=== PATIENT | female | born 1985 | race African-American/Black ===

== ENCOUNTER 2016-09-11 08:17 | Emergency (ER) | payer OTHER ==
[2016-09-11] MEDS ORDERED: KETOROLAC 60 MG/2 ML VIAL IVP STA (11:16)
[2016-09-11] MEDS ORDERED: KETOROLAC 30 MG/ML VIAL ONE (11:58)
[2016-09-11] MEDS ORDERED: ONDANSETRON 4 MG/2 ML VIAL IVP STA (13:08)
[2016-09-11] MEDS ORDERED: HYDROmorphone 1 MG/ML SYRINGE IVP STA (13:08)
[2016-09-11] MEDS ORDERED: HYDROmorphone 1 MG/ML SYRINGE ONE (13:20)
[2016-09-11] MEDS ORDERED: ONDANSETRON 4 MG/2 ML VIAL ONE (13:20)
[2016-09-11] MEDS ORDERED: GADOBUTROL 7.5 MMOL/7.5 ML VIAL IVP ONE (15:25)
== END 2016-09-11 19:21 | disposition home or self-care (01) ==
DX: N83.202 Unspecified ovarian cyst, left side (principal)
CPT/HCPCS: 36415; 72197; 74176; 76830; 76856; 80053; 81001; 81025; 83690; 85025; 93976; 96374; 96375; 99283; 99284; A9585; J1170

== ENCOUNTER 2018-09-20 08:46 | Emergency (ER) | payer OTHER ==
[2018-09-20] MEDS ORDERED: oxyCODONE 5 MG TABLET PO STA (09:09)
--- NOTE | 2018-09-20 09:16 | ED Physician Documentation ---
History of Present Illness - Stated complaint Stated Complaint: LEFT SIDE PX - Chief complaint Chief Complaint: Abd Pain - Additonal information Additional information: hx from pt 32 f [place] pshx ovarian cyst LMP 09/07/18 to ED with severe LLQ pain since last night constant occ spikes to more severe no fever no NVD no dysuria or hematuria no vag bleed no vag dc she thinks this is another cyst Review of Systems Constitutional: denies: Fever, Chills Cardiac: denies: Chest pain / pressure Respiratory: denies: Dyspnea GI: reports: Abdominal Pain (LLQ) : denies: Dysuria, Hematuria, Discharge, Vaginal bleeding, Now EGA Musculoskeletal: denies: Back pain Endocrine: denies: Easy bruising / bleeding Immunocompromised: denies: Immunocompromised PD PAST MEDICAL HISTORY - Past Medical History [employer]: Endometriosis, Ovarian cysts - Present Medications Home Medications: Ambulatory Orders Medication Instructions Recorded Confirmed Hydrocodone/Acetaminophen 1 each PO Q6H PRN #10 tablet 09/20/18 [Hydrocodon-Acetaminophen 5-325] Ibuprofen [Motrin] 400 mg PO Q6H #30 tablet 09/20/18 Propranolol [Inderal] 0 mg PO BID 09/20/18 09/20/18 - Allergies Allergies/Adverse Reactions: Allergies Allergy/AdvReac Type Severity Reaction Status Date / Time No Known Drug Allergies Allergy Verified 09/20/18 08:53 - Social History Does the pt smoke?: No Smoking Status: Never smoker Does the pt drink ETOH?: Yes Does the pt have substance abuse?: No - Immunizations Immunizations are current?: Yes PD ED PE NORMAL - Vitals Vital signs reviewed: Yes - Cardiac Cardiac: RRR - Respiratory Respiratory: No respiratory distress - Abdomen Abdomen: Soft, Other (TTP LLQ s rebound or guarding) - Back Back: No CVA TTP - Derm Derm: Normal color - Neuro Neuro: Alert and oriented X 3 Results - Vitals Vitals: Vital Signs - 24 hr 09/20/18 08:51 Temperature 36.4 C L Heart Rate 83 Respiratory 14 Rate Blood Pressure 126/81 H O2 Saturation 100 Oxygen O2 Source Room air - Labs Labs: Laboratory Tests 09/20/18 10:00 Urine Color YELLOW Urine Clarity CLEAR Urine pH 6.5 Ur Specific [place] 1.010 Urine Protein NEGATIVE Urine Glucose (UA) NEGATIVE Urine Ketones NEGATIVE Urine Occult Blood SMALL H Urine Nitrite NEGATIVE Urine Bilirubin NEGATIVE Urine Urobilinogen 0.2 (NORMAL) Ur Leukocyte Esterase NEGATIVE Urine RBC 0-5 Urine WBC 0-3 Ur Squamous Epith Cells MOD Squamous H Urine Bacteria Rare Ur Microscopic Review INDICATED Urine Culture Comments NOT INDICATED Urine HCG, Qual NEGATIVE - Rads (name of study) pelvic sono Radiology: See rad report (2 large L ovarian cysts up to 3.5 cm no torsion, some internal debris, small simple right ovarian cyst) Departure - Departure Disposition: 01 Home, Self Care Clinical Impression: Ovarian cyst Qualifiers: Laterality: left Qualified Code(s): N83.202 - Unspecified ovarian cyst, left side Condition: Good Instructions: ED Cyst Ovarian Follow-Up: [facility] [Provider Group] Prescriptions: Hydrocodone/Acetaminophen [Hydrocodon-Acetaminophen 5-325] 1 each PO Q6H PRN #10 tablet PRN Reason: Severe Pain Ibuprofen [Motrin] 400 mg PO Q6H #30 tablet Comments: You are not You have cysts in both ovaries. The left ovary has two very large cysts - up to 3.7 cm. Thankfully there is still good blood flow to the ovary. There is some suggestion of bleeding within the large left cyst which may be causing the pain. It is Ok for you to go hoem with pain medications Please follow up with [employer] at [facility] tomorrow. Return to the ER if worse - large cysts can sometimes become so heavy they cause the ovary to twist and cut of its own blood supply and that requires emergent surgery
[2018-09-20 10:40] LABS: BILIRUBIN,URINE NEGATIVE (NEGATIVE); GLUCOSE, URINE (UA) NEGATIVE (NEGATIVE); KETONES,URINE (UA) NEGATIVE (NEGATIVE); LEUKOCYTE ESTERASE, URINE NEGATIVE (NEGATIVE); NITRITE,URINE NEGATIVE (NEGATIVE); OCCULT BLOOD,URINE SMALL (NEGATIVE); PH,URINE 6.5 PH (5.0-7.5); PROTEIN,URINE NEGATIVE (NEGATIVE); UROBILINOGEN,URINE 0.2 (NORMAL) E.U./dL (NORMAL)
[2018-09-20 10:41] LABS: CLARITY,URINE CLEAR (CLEAR); HCG UR QUAL NEGATIVE
[2018-09-20 10:48] LABS: BACTERIA,URINE Rare /HPF (None Seen); RBC,URINE 0-5 /HPF (0-5); SQUAMOUS EPITHELIAL CELL,UR MOD Squamous (<= Few)
--- NOTE | 2018-09-20 11:09 | Ultrasound Report ---
Reason: severe LLQ pain hx ovarian cysts concern torsion Procedure Date: 09/20/2018 Accession Number: [id number] / [id number] Procedure: US - Pelvic w/Transvag+Doppler Comp CPT Code: FULL RESULT: EXAM: PELVIC ULTRASOUND EXAM DATE: 09/20/2018 10:26 AM. CLINICAL HISTORY: Severe LLQ pain. History of ovarian cyst. COMPARISON: 09/11/2016. TECHNIQUE: Realtime transabdominal pelvic scan performed to identify the uterus and adnexa and as an overview of other pelvic structures, followed by transvaginal scan to provide greater detail of the uterus and adnexa, with static image documentation. FINDINGS: Uterus: 7.1 x 3.4 x 4.4 cm, volume 56 cc. Normal overall size and echotexture. Masses: None. Endometrium: 7.4 mm. Normal. Cervix: Unremarkable. Right Ovary: 3.9 x 2.2 x 2.7 cm, volume 12 cc. Simple cyst measuring 1.9 cm. A few follicles. No solid masses. Normal vascular flow in the ovarian tissue. Left Ovary: 5.6 x 3.5 x 4.9 cm, volume 50 cc. Two adjacent cysts; measuring 3.6 x 1.7 x 3.7 cm (complex with intraluminal debris) and measuring 2.8 x 2.4 x 3.9 (simple). No solid masses. Normal vascular flow in the ovarian tissue. Free Fluid: Mild free fluid. IMPRESSION: 1. No evidence for ovarian torsion. 2. Two left ovarian cysts, as described; the largest measures 3.7 cm in maximal dimension and contains intraluminal debris. Suggest follow-up to confirm resolution. 3. Simple right ovarian cyst measures 1.9 cm. RADIA
[2018-09-20 11:47] VITALS: BP 133/89
== END 2018-09-20 11:47 | disposition home or self-care (01) ==
LOC: ED 08:46
DX: N83.292 Other ovarian cyst, left side (principal); N83.291 Other ovarian cyst, right side
CPT/HCPCS: 76830; 76856; 81001; 81025; 87491; 87591; 93975; 99283; A9270; 81003; 87086

== ENCOUNTER 2018-11-25 16:38 | Emergency (ER) | payer OTHER ==
[2018-11-25 17:02] LABS: BASOPHILS % (AUTO) 0.4 %; HGB - HEMOGLOBIN 13.2 g/dL (12.0-16.0); LYMPHOCYTES # (AUTO) 0.5 10^3/uL (1.5-3.5); LYMPHOCYTES % (AUTO) 7.8 %; MEAN CORPUSCULAR HEMOGLOBIN 31.5 pg (27.0-31.0); MEAN CORPUSCULAR HGB CONC 34.5 g/dL (32.0-36.0); MEAN CORPUSCULAR VOLUME 91.4 fL (81.0-99.0); MEAN PLATELET VOLUME 8.2 fL (7.9-10.8); MONOCYTES # (AUTO) 0.9 10^3/uL (0.0-1.0); NEUTROPHILS # (AUTO) 5.1 10^3/uL (1.5-6.6); NEUTROPHILS % (AUTO) 77.8 %; PLT - PLATELET COUNT 244 10^3/uL (130-450); RED BLOOD COUNT 4.19 10^6/uL (4.20-5.40); RED CELL DISTRIBUTION WIDTH 12.6 % (12.0-15.0); WHITE BLOOD COUNT 6.5 x10^3/uL (4.8-10.8)
[2018-11-25] MEDS ORDERED: SODIUM CHLORIDE 0.9% 1,000 ML IV ONE (17:09)
[2018-11-25] MEDS ORDERED: METOCLOPRAMIDE 10 MG/2 ML VIAL IVP STA (17:09)
[2018-11-25] MEDS ORDERED: FAMOTIDINE 20 MG in SODIUM CHLORIDE 0.9% 50 ML IV STA (17:09)
[2018-11-25 17:17] LABS: ALBUMIN/GLOBULIN RATIO 1.1 (1.0-2.2); BILIRUBIN,TOTAL 1.2 mg/dL (0.2-1.0); CALCIUM 8.9 mg/dL (8.5-10.3); CREATININE 0.6 mg/dL (0.4-1.0); TOTAL PROTEIN 7.6 g/dL (6.7-8.2)
[2018-11-25 17:33] LABS: GLUCOSE, URINE (UA) NEGATIVE (NEGATIVE); KETONES,URINE (UA) 15 mg/dL (NEGATIVE); LEUKOCYTE ESTERASE, URINE NEGATIVE (NEGATIVE); NITRITE,URINE NEGATIVE (NEGATIVE); OCCULT BLOOD,URINE LARGE (NEGATIVE); PROTEIN,URINE TRACE mg/dL (NEGATIVE); UROBILINOGEN,URINE 1 (NORMAL) E.U./dL (NORMAL)
[2018-11-25 17:38] LABS: BILIRUBIN,URINE NEGATIVE (NEGATIVE); CLARITY,URINE CLEAR (CLEAR); ICTOTEST,URINE NEGATIVE
[2018-11-25 17:48] LABS: BACTERIA,URINE Moderate /HPF (None Seen); MUCUS,URINE Marked Strands; SQUAMOUS EPITHELIAL CELL,UR MANY Squamous (<= Few)
[2018-11-25 19:00] LABS: HCG UR QUAL NEGATIVE
[2018-11-25] MEDS ORDERED: ONDANSETRON 4 MG/2 ML VIAL IVP STA (19:01)
[2018-11-25] MEDS ORDERED: KETOROLAC 15 MG/ML VIAL IVP STA (19:01)
--- NOTE | 2018-11-25 19:27 | Ultrasound Report ---
Reason: epigastric pain Procedure Date: 11/25/2018 Accession Number: [id number] / [id number] Procedure: US - Abdomen Limited CPT Code: FULL RESULT: EXAM: ABDOMEN ULTRASOUND LIMITED, RUQ EXAM DATE: 11/25/2018 12:58 AM. CLINICAL HISTORY: Epigastric pain. COMPARISON: PEL NON OB W/TV DOP 09/20/2018 9:44 AM ABDOMEN/PELVIS W/O 09/11/2016 11:38 AM. TECHNIQUE: Real-time scanning was performed with static images obtained. FINDINGS: Liver: Normal in size and echotexture. 13.8 cm. Main portal vein flow: Hepatopetal. Gallbladder: Normal. No stones, wall thickening, or sonographic Brito's sign. Biliary System: CBD measures 3 mm. No intrahepatic or extrahepatic ductal dilatation. Other: The right kidney is unremarkable no hydronephrosis. IMPRESSION: Normal. No cholelithiasis. RADIA
--- NOTE | 2018-11-25 19:39 | ED Physician Documentation ---
History of Present Illness - Stated complaint Stated Complaint: NAUSEA - Chief complaint Chief Complaint: Abd Pain - Additonal information Additional information: 33-year-old female presents the emergency department for epigastric pain associ ated with nausea which is been ongoing for the past day. The patient denies any focal lower abdominal pain. The patient reports having no appetite and that food makes her symptoms worse. The patient denies any radiation of the symptoms. No relieving factors. No other associated symptoms PD PAST MEDICAL HISTORY - Past Medical History [employer]: Endometriosis, Ovarian cysts - Present Medications Home Medications: Ambulatory Orders Medication Instructions Recorded Confirmed Ibuprofen [Motrin] 400 mg PO Q6H #30 tablet 09/20/18 11/25/18 Famotidine [Pepcid] 20 mg PO BID PRN #60 tablet 11/25/18 Ondansetron HCl [Zofran] 4 mg PO Q6HR PRN #30 tablet 11/25/18 - Allergies Allergies/Adverse Reactions: Allergies Allergy/AdvReac Type Severity Reaction Status Date / Time No Known Drug Allergies Allergy Verified 11/25/18 16:44 - Social History Does the pt smoke?: No Smoking Status: Never smoker Does the pt drink ETOH?: Yes Does the pt have substance abuse?: No - Immunizations Immunizations are current?: Yes Results - Vitals Vitals: Vital Signs - 24 hr 11/25/18 11/25/18 16:42 18:44 Temperature 36.9 C Heart Rate 108 H 98 Respiratory 14 14 Rate Blood Pressure 131/70 H 100/61 O2 Saturation 100 100 Oxygen O2 Source Room air - Labs Labs: Laboratory Tests 11/25/18 11/25/18 11/25/18 16:56 16:56 17:20 WBC 6.5 RBC 4.19 L Hgb 13.2 Hct 38.3 MCV 91.4 MCH 31.5 H MCHC 34.5 RDW 12.6 Plt Count 244 MPV 8.2 Neut # (Auto) 5.1 Lymph # (Auto) 0.5 L [place] # (Auto) 0.9 Eos # (Auto) 0.0 Baso # (Auto) 0.0 Absolute Nucleated RBC 0.00 Nucleated RBC % 0.1 Sodium 134 L Potassium 3.5 Chloride 101 Carbon Dioxide 25 Anion Gap 8.0 BUN 8 Creatinine 0.6 Estimated GFR (MDRD) 140 Glucose 96 Calcium 8.9 Total Bilirubin 1.2 H AST 16 ALT 12 Alkaline Phosphatase 45 Total Protein 7.6 Albumin 4.0 Globulin 3.6 Albumin/Globulin Ratio 1.1 Lipase 29 Urine Color YELLOW Urine Clarity CLEAR Urine pH 6.0 Ur Specific [place] >=1.030 H Urine Protein TRACE Urine Glucose (UA) NEGATIVE Urine Ketones 15 H Urine Occult Blood LARGE H Urine Nitrite NEGATIVE Urine Bilirubin NEGATIVE Urine Urobilinogen 1 (NORMAL) Ur Leukocyte Esterase NEGATIVE Urine RBC 6-10 H Urine WBC 0-3 Ur Squamous Epith Cells MANY Squamous H Urine Bacteria Moderate H Urine Mucus Marked Strands Ur Microscopic Review INDICATED Urine Culture Comments NOT INDICATED Urine HCG, Qual 11/25/18 18:56 WBC RBC Hgb Hct MCV MCH MCHC RDW Plt Count MPV Neut # (Auto) Lymph # (Auto) [place] # (Auto) Eos # (Auto) Baso # (Auto) Absolute Nucleated RBC Nucleated RBC % Sodium Potassium Chloride Carbon Dioxide Anion Gap BUN Creatinine Estimated GFR (MDRD) Glucose Calcium Total Bilirubin AST ALT Alkaline Phosphatase Total Protein Albumin Globulin Albumin/Globulin Ratio Lipase Urine Color Urine Clarity Urine pH Ur Specific [place] >=1.030 H Urine Protein Urine Glucose (UA) Urine Ketones Urine Occult Blood Urine Nitrite Urine Bilirubin Urine Urobilinogen Ur Leukocyte Esterase Urine RBC Urine WBC Ur Squamous Epith Cells Urine Bacteria Urine Mucus Ur Microscopic Review Urine Culture Comments Urine HCG, Qual NEGATIVE - Rads (name of study) US abdomen Radiology: Final report received, See rad report PD MEDICAL DECISION MAKING - ED course ED course: The patient's workup in the emergency department does not reveal any significant abnormality that would necessitate admission to the hospital or acute surgical consultation. Presently, the patient appears appropriate for discharge and ongoing outpatient management. The patient will follow up with primary care, if her symptoms are ongoing I recommended asking for referral to GI for an outpatient EGD. The patient understands and agrees. I discussed warning signs and recommended returning for any worsening or concerns. Departure - Departure Disposition: 01 Home, Self Care Clinical Impression: Epigastric pain, Nausea Condition: Good Instructions: ED Abdominal Pain Unkn Cause, ED Gastritis, ED Epigastric Pain [facility] Follow-Up: [facility] [Provider Group] - Within 1 week Prescriptions: Ondansetron HCl [Zofran] 4 mg PO Q6HR PRN #30 tablet PRN Reason: Nausea / Vomiting Famotidine [Pepcid] 20 mg PO BID PRN #60 tablet PRN Reason: Nausea / Vomiting Comments: Please return to the emergency department for worsening symptoms or any concerns
[2018-11-25 19:58] VITALS: BP 114/69
== END 2018-11-25 19:59 | disposition home or self-care (01) ==
LOC: ED 16:38
DX: R10.13 Epigastric pain (principal); R11.0 Nausea
CPT/HCPCS: 36415; 76705; 80053; 81001; 81025; 83690; 85025; 96361; 96365; 96375; 99283; J2765; J7040; 81003; 87086